=== PATIENT | female | born 1990 | race African-American/Black ===

== ENCOUNTER 2016-06-28 09:02 | Emergency (ER) | payer MEDICAID, OTHER ==
[~2016-06-28] VITALS: Ht 167.6 cm; Wt 100.0 kg
[~2016-06-28 09:02] MED LIST: DOCU-138; DOXY150T3; FERR134T2
[2016-06-28 11:47] VITALS: BP 113/67
[2016-06-28] MEDS ORDERED: DEXAMETHASONE 10MG/ML 1ML VIAL IM ONE (12:30)
== END 2016-06-28 12:49 | disposition home or self-care (01) ==
LOC: ER 11:24
DX: L50.9 Urticaria, unspecified (principal); I10 Essential (primary) hypertension; Z98.890 Other specified postprocedural states
CPT/HCPCS: 96372; 99283; J1100